=== PATIENT | male | born 1940 | race Caucasian/White ===

== ENCOUNTER → 2017-10-20 | Outpatient (CLI) | payer MEDICARE ==
[~2017-10-20] MED LIST: BISO10TA16; BISO5TAB23; DIGO125T73; FURO-45; ONDA4TAB PO; SIMV-49; TRAM-420 PO
--- NOTE | 2017-10-20 11:11 | EKG ---
FACILITY: [facility] PATIENT NAME: MALLORY SCOTT : [id number] MR: [id number] V: [id number] EXAM DATE: ORDERING PHYSICIAN: MIESHA HAYDEN TECHNOLOGIST: YANG Test Reason : afib Blood Pressure : / mmHG Vent. Rate : 111 BPM Atrial Rate : 394 BPM P-R Int : 000 ms QRS Dur : 080 ms QT Int : 346 ms P-R-T Axes : 000 122 033 degrees QTc Int : 470 ms Atrial flutter with variable conduction and with a PVC Low voltage QRS No previous ECGs available Confirmed by NELDA PETTY ([id number]) on 10/20/2017 8:50:33 PM Referred By: Confirmed By:NELDA PETTY
== END ==
LOC: LAB 10:36
PROVIDERS: ATTEND Internal Medicine
DX: I48.91 Unspecified atrial fibrillation (principal)
CPT/HCPCS: 93005

== ENCOUNTER 2018-01-26 09:52 | Emergency (ER) | payer MEDICARE ==
[~2018-01-26 09:52] MED LIST changes: -DIGO125T73; +DIGO125T73 PO; -FURO-45; +FURO-45 PO
--- NOTE | 2018-01-26 09:54 | ER Report ---
History and Physical Time Seen By MD: 09:54 HPI/ROS CHIEF COMPLAINT: Chest pain HISTORY OF PRESENT ILLNESS: Patient is a 77-year-old male with past medical history significant for atrial fibrillation currently rate controlled on digoxin which is a new medication over the past week. Also currently on Eliquis. Patient states that after going to the bathroom this morning around 7: 30 AM he was sitting down about to have breakfast and developed some right sided chest pain and pressure. No associated shortness of breath. He denies diaphoresis or nausea. Patient currently rates the pain as present but mild and has been continuous since it began at 7:30. Patient has no prior history of myocardial infarction. He denies any current tobacco use but did smoke quitting 27 years ago. He denies any abdominal pain or back pain. Denies any infectious type symptoms including fevers or chills or cough. REVIEW OF SYSTEMS: Constitutional: No fever, no chills. Eyes: No discharge. ENT: No sore throat. Cardiovascular: Right-sided chest pain, atrial fibrillation Respiratory: No cough, no shortness of breath. Gastrointestinal: No abdominal pain, no vomiting. Genitourinary: No hematuria. Musculoskeletal: No back pain. Skin: No rashes. Neurological: No headache. Allergies: Coded Allergies: cephalexin (Verified Allergy, Unknown, 01/26/18) rivaroxaban (Verified Allergy, Unknown, 01/26/18) warfarin (Verified Allergy, Unknown, 01/26/18) Home Meds Reported Medications Fluticasone/Salmeterol (ADVAIR 500-50 DISKUS) 1 Each Disk.w.dev, 1 EACH IH DAILY 01/26/18 Apixaban (ELIQUIS) 5 Mg Tablet, 5 MG PO DAILY 01/26/18 Metformin Hcl (METFORMIN HCL) 500 Mg Tablet, 1 TAB PO QDAY, TAB 01/26/18 Metoprolol Tartrate (METOPROLOL TARTRATE) 25 Mg Tablet, 50 MG PO BID, TAB 01/26/18 Digoxin (DIGOXIN) 125 Mcg Tablet, 125 MCG PO DAILY, #45 01/29/16 Furosemide (FUROSEMIDE) 20 Mg Tablet, 40 MG PO DAILY, #90 01/29/16 Discontinued Reported Medications Bisoprolol Fumarate (BISOPROLOL FUMARATE) 5 Mg Tablet, #180 01/29/16 Simvastatin (SIMVASTATIN) 20 Mg Tablet, #90 8/1/16 Bisoprolol Fumarate (BISOPROLOL FUMARATE) 10 Mg Tablet, #60 01/29/16 Discontinued Scripts Ondansetron (ZOFRAN ODT) 4 Mg Tab.rapdis, 4 MG PO Q6H for Nausea, #20 TAB.DOUGLAS Prov:VIVIANE WHITMAN DO 01/29/16 Tramadol Hcl (TRAMADOL HCL) 50 Mg Tablet, 50-100 MG PO Q4-6H for PAIN, #20 TAB Prov:VIVIANE WHITMAN DO 01/29/16 Past Medical/Surgical History Past medical history for atrial fibrillation, history of hypercholesterol, hypertension. Patient has a pacemaker. Hx Smoking: No Exposure to Second Hand Smoke?: No Hx Substance Use Disorder: Yes Hx Alcohol Use: No Constitutional Vital Sign - Last 24 Hours 01/26/18 01/26/18 09:55 09:55 Pulse 84 Resp 24 B/P (MAP) 122/73 Pulse Ox 78 O2 Delivery Room Air O2 Flow Rate 3.0 Physical Exam General/Constitutional: Patient is awake, alert, nontoxic and in no acute respiratory distress. Head: Normocephalic and atraumatic. Eyes: Conjunctival clear, Sclera are clear and anicteric. Ears:External canals are clear. Tympanic membranes are clear with normal landmarks and light reflex. Nares: No rhinorrhea or bleeding. Turbinates are pink and moist. Oropharyngeal: Mucous membranes are moist. There is no pharyngeal erythema or exudate. There are no palatal petechiae. Uvula is midline and symmetrical. Neck: Supple, no adenopathy. Cardiovascular: Heart is rate controlled but irregularly irregular. Pulmonary: Lungs are clear to auscultation bilaterally. There are no wheezes, rales, or rhonchi. Chest rise is symmetrical Abdomen: Soft, nontender, no guarding or peritoneal signs. Extremities: No gross deformities, No peripheral cyanosis. Able to move all 4 extremities. Neuro: Alert and oriented X3, Skin: No rashes, skin is warm dry and well perfused. Medical Decision Making Data Points Result Diagram: 01/26/18 1022 01/26/18 1044 Laboratory Hematology Test 01/26/18 10:22 01/26/18 10:44 01/26/18 13:25 Red Blood Count 4.56 M/uL (4.00-5.60) Mean Corpuscular Volume 99.8 fL (80.0-96.0) Mean Corpuscular Hemoglobin 34.2 pg (26.0-33.0) Mean Corpuscular Hemoglobin Concent 34.3 g/dL (32.0-36.0) Red Cell Distribution Width 16.2 % (11.5-14.5) Mean Platelet Volume 7.4 fL (7.2-11.1) Neutrophils (%) (Auto) 80.8 % (39.4-72.5) Lymphocytes (%) (Auto) 10.2 % (17.6-49.6) Monocytes (%) (Auto) 6.5 % (4.1-12.4) Eosinophils (%) (Auto) 1.6 % (0.4-6.7) Basophils (%) (Auto) 0.9 % (0.3-1.4) Nucleated RBC Relative Count (auto) 0.1 /100WBC Neutrophils # (Auto) 5.5 K/uL (2.0-7.4) Lymphocytes # (Auto) 0.7 K/uL (1.3-3.6) Monocytes # (Auto) 0.4 K/uL (0.3-1.0) Eosinophils # (Auto) 0.1 K/uL (0.0-0.5) Basophils # (Auto) 0.1 K/uL (0.0-0.1) Nucleated RBC Absolute Count (auto) 0.01 K/uL Peripheral Blood Smear No Y/N B-Type Natriuretic Peptide 195 pg/ml (0-100) Digoxin Level < 0.4 ng/ml Digoxin Last Dose Date unk Digoxin Last Dose Time unk Prothrombin Time 15.0 seconds (12.0-14.4) Prothromb Time International Ratio 1.17 Activated Partial Thromboplast Time 30 seconds (23-35) Sodium Level 137 mmol/L (137-145) Potassium Level 4.0 mmol/L (3.5-5.0) Chloride Level 103 mmol/L (98-107) Carbon Dioxide Level 23 mmol/L (22-30) Blood Urea Nitrogen 24 mg/dl (9-21) Creatinine 1.20 mg/dl (0.66-1.25) Glomerular Filtration Rate Calc 59.0 Random Glucose 124 mg/dl (75-110) Calcium Level 8.4 mg/dl (8.4-10.2) Total Bilirubin 0.8 mg/dl (0.2-1.3) Aspartate Amino Transf (AST/SGOT) 33 U/L (0-35) Alanine Aminotransferase (ALT/SGPT) 30 U/L (0-56) Alkaline Phosphatase 193 U/L (0-126) Total Protein 6.8 g/dl (6.3-8.2) Albumin 3.8 g/dl (3.5-5.0) Troponin I < 0.012 ng/ml Chemistry Test 01/26/18 10:22 01/26/18 10:44 01/26/18 13:25 White Blood Count 6.8 k/uL (4.5-11.0) Red Blood Count 4.56 M/uL (4.00-5.60) Hemoglobin 15.6 g/dL (14.0-18.0) Hematocrit 45.5 % (42.0-52.0) Mean Corpuscular Volume 99.8 fL (80.0-96.0) Mean Corpuscular Hemoglobin 34.2 pg (26.0-33.0) Mean Corpuscular Hemoglobin Concent 34.3 g/dL (32.0-36.0) Red Cell Distribution Width 16.2 % (11.5-14.5) Platelet Count 168 K/uL (150-450) Mean Platelet Volume 7.4 fL (7.2-11.1) Neutrophils (%) (Auto) 80.8 % (39.4-72.5) Lymphocytes (%) (Auto) 10.2 % (17.6-49.6) Monocytes (%) (Auto) 6.5 % (4.1-12.4) Eosinophils (%) (Auto) 1.6 % (0.4-6.7) Basophils (%) (Auto) 0.9 % (0.3-1.4) Nucleated RBC Relative Count (auto) 0.1 /100WBC Neutrophils # (Auto) 5.5 K/uL (2.0-7.4) Lymphocytes # (Auto) 0.7 K/uL (1.3-3.6) Monocytes # (Auto) 0.4 K/uL (0.3-1.0) Eosinophils # (Auto) 0.1 K/uL (0.0-0.5) Basophils # (Auto) 0.1 K/uL (0.0-0.1) Nucleated RBC Absolute Count (auto) 0.01 K/uL Peripheral Blood Smear No Y/N B-Type Natriuretic Peptide 195 pg/ml (0-100) Digoxin Level < 0.4 ng/ml Digoxin Last Dose Date unk Digoxin Last Dose Time unk Prothrombin Time 15.0 seconds (12.0-14.4) Prothromb Time International Ratio 1.17 Activated Partial Thromboplast Time 30 seconds (23-35) Glomerular Filtration Rate Calc 59.0 Calcium Level 8.4 mg/dl (8.4-10.2) Total Bilirubin 0.8 mg/dl (0.2-1.3) Aspartate Amino Transf (AST/SGOT) 33 U/L (0-35) Alanine Aminotransferase (ALT/SGPT) 30 U/L (0-56) Alkaline Phosphatase 193 U/L (0-126) Total Protein 6.8 g/dl (6.3-8.2) Albumin 3.8 g/dl (3.5-5.0) Troponin I < 0.012 ng/ml Coagulation Test 01/26/18 10:44 Prothrombin Time 15.0 seconds Prothromb Time International Ratio 1.17 Activated Partial Thromboplast Time 30 seconds Toxicology Test 01/26/18 10:22 Digoxin Level < 0.4 ng/ml Digoxin Last Dose Date unk Digoxin Last Dose Time unk EKG/Imaging EKG Interpretation EKG shows atrial fibrillation that is rate controlled with an occasional premature atrial and premature ventricular contraction. No ST segment or T-wave abnormalities. Monitor Interpretation: Atrial Fibrillation Imaging FACILITY: [facility] PATIENT NAME: Marlon Garrett : 1940 MR: [id number] V: [id number] EXAM DATE: ORDERING PHYSICIAN: ANTONIO VAN TECHNOLOGIST: Location: [facility] Patient: Marlon Garrett : 1940 Visit/Account:[id number] Date of Sevice: 01/26/2018 CHEST SINGLE AP Indication: Chest Pain Comparison: Chest x-ray 07/19/2008 Findings: Lungs: There is a soft tissue fullness in the right hilum. There is blunting of the right costophrenic angle. The left lung is clear. Mediastinum/pulmonary vasculature: There is mild cardiomegaly. Bones/soft tissues: There is an internal cardiac fibrillator/pacemaker in good position. IMPRESSION: 1. Soft tissue fullness right hilum. Differential diagnosis includes mass as well as dilated right pulmonary artery. Recommend CT chest with IV contrast to evaluate for possible mass. 2. Clear left lung. This was called by Dr. Paz to ANTONIO VAN on 01/26/2018 10:31 AM Report Dictated By: Kelvin Paz at 01/26/2018 10:31 AM Report E-Signed By: Kelvin Paz at 01/26/2018 10:45 AM WSN:[id number] FACILITY: [facility] PATIENT NAME: Marlon Garrett : 1940 MR: [id number] V: [id number] EXAM DATE: ORDERING PHYSICIAN: ANTONIO VAN TECHNOLOGIST: Location: [facility] Patient: Marlon Garrett : 1940 Visit/Account:[id number] Date of Sevice: 01/26/2018 CHEST W CONTRAST History: Right-sided mass on chest x-ray TECHNIQUE: Contiguous axial images were performed through the chest to the level of the adrenal glands following the administration of IV contrast. Coronal and sagittal reformatting was also performed. Dose Lowering Technique One of the following dose optimization techniques was utilized in the performance of this exam: Automated exposure control; adjustment of the mA and/ or kV according to the patient's size; or use of an iterative reconstruction technique. Specific details can be referenced in the facility's radiology CT exam operational policy. Contrast: 75 mL Isovue-370 COMPARISON STUDIES: Single view chest performed today. Lungs / Pleura: There is a small posterior layering right pleural effusion and adjacent airspace consolidation in the right lower lobe. There are mild reticular changes in the left lower lobe which may be chronic Mediastinum/nodes: negative. Heart and vessels: There is an ovoid hypodensity producing extrinsic mass effect on the lumen of the right main pulmonary artery extending along the posterior wall of arterial branch to the right lower lobe. There are serpiginous areas of increased density within this space-occupying process. This may represent a chronic pulmonary thrombus which is partially calcified. There is a small pericardial effusion. At least moderate calcifications are identified in the coronary arteries. There is a dual lead cardiac pacemaker moderate gastric calcifications identified in the thoracic aorta and branch vessels Musculoskeletal / Body wall: Spondylotic changes of the thoracic spine Upper abdomen: There is linear stranding in the fat adjacent to the dome of the liver IMPRESSION: Small posterior layering right pleural effusion and adjacent airspace consolidation the right lower lobe. Mild reticular changes left lower lobe which may be chronic There is an ovoid hypodensity producing extrinsic mass effect on the lumen of the right main pulmonary artery extending along the posterior wall arterial branches to the right lower lobe. Serpiginous areas of increased density within the space-occupying process may represent calcifications. This may represent a chronic pulmonary thrombus correlation with patient's history needed. Small amount of acute thrombus not totally ruled out however by history the patient is on Eloquis four A. fib Small pericardial effusion Extensive calcifications in the thoracic aorta and branch vessels including the coronary arteries Linear stranding the fat adjacent to the dome of the liver of uncertain etiology although likely chronic Report Dictated By: Saray Perkins MD at 01/26/2018 12:13 PM Report E-Signed By: Saray Perkins MD at 01/26/2018 12:37 PM WSN:[email or web address] ED Course/Re-evaluation Clinical Indication for ER IV: IV Access ED Course 01/26/2018 10:16:41 am patient with chest pain. Differential diagnosis includes is not limited to chest wall pain, reflux, pneumonia, pneumothorax, acute coronary syndrome. Plan will be cardiac workup including EKG. We will give 162 mg of aspirin along with nitroglycerin. Further will perform delta troponin over a 3 hour window. 01/26/2018 1:09:[address] scan results show a hypodensity extending and producing some mass effect on the right main pulmonary artery which may represent chronic pulmonary thrombus. I discussed the case with Dr. Whiteside who is a vascular surgeon from [facility] [place]; history exam pertinent lab data and CT scan results were reviewed. It was 's feeling that this certainly represents chronic process and not acute. He feels that the patient should continue on his Eliquis and follow up with his primary care provider. If he develops worsening chest pain or shortness of breath he should be reevaluated. At this time and I'm currently waiting on the patient's 2nd troponin level to return. I will also try to discuss the case with the the patients primary care provider who will be Dr. Swanson; He has an appointment to establish care this February. 01/26/2018 2:25:39 pm repeat troponin is negative patient is currently pain- free this time will discharge home Decision to Disposition Date: Jan 26, 2018 Decision to Disposition Time: 14:25 Depart Departure Latest Vital Signs Vital Signs Date Time Temp Pulse Resp B/P (MAP) Pulse Ox O2 Delivery O2 Flow Rate FiO2 01/26/18 09:55 3.0 01/26/18 09:55 84 24 122/73 78 Room Air Impression: Primary Impression: Chest pain Condition: Improved Disposition: HOME OR SELF-CARE Referrals: AZEEM SWANSON MD Keep your appointment as scheduled in February Patient Instructions: Chest Pain (ED) Additional Instructions: Continue all your current prescription as directed. Keep your follow-up appointment with Dr. Swanson is February If at any time your pain seems to worsen or he feels shortness of breath or develop fever and/or productive cough he should return for reevaluation in the emergency department. Problem Qualifiers Primary Impression: Chest pain Chest pain type: chest pain on breathing Qualified Codes: R07.1 - Chest pain on breathing ANTONIO VAN MD Jan 26, 2018 09:54
[2018-01-26] MEDS ORDERED: APIX5TAB PO (10:01)
[2018-01-26] MEDS ORDERED: FLUT1DIS29 IH (10:01)
[2018-01-26] MEDS ORDERED: METF-411 PO (10:01)
[2018-01-26] MEDS ORDERED: METO25TA93 PO (10:01)
[2018-01-26] MEDS ORDERED: ASPIRIN 81 MG CHEW PO ONE (10:20)
[2018-01-26] MEDS ORDERED: NITROGLYCERIN OINT 1 GM PKT TP ONE (10:20)
--- NOTE | 2018-01-26 10:26 | EKG ---
FACILITY: [facility] PATIENT NAME: MALLORY SCOTT : [id number] MR: [id number] V: [id number] EXAM DATE: ORDERING PHYSICIAN: ANTONIO VAN TECHNOLOGIST: MOISÉS Test Reason : CHEST PAIN Blood Pressure : / mmHG Vent. Rate : 078 BPM Atrial Rate : 049 BPM P-R Int : 000 ms QRS Dur : 072 ms QT Int : 388 ms P-R-T Axes : 000 055 026 degrees QTc Int : 442 ms Demand pacemaker, interpretation is based on intrinsic rhythm Atrial fibrillation with premature ventricular or aberrantly conducted complexes Low voltage QRS Abnormal ECG When compared with ECG of 20-OCT-2017 11:03, Previous ECG has undetermined rhythm, needs review Left posterior fascicular block is no longer present Confirmed by OLIVIA LOYA ([id number]) on 01/26/2018 1:24:02 PM Referred By: GALA Confirmed By:OLIVIA LOYA
[2018-01-26 10:36] LABS: PLATELET COUNT, AUTOMATED 168 K/uL (150-450)
--- NOTE | 2018-01-26 10:49 | RADIOLOGY IMAGING REPORT ---
FACILITY: [facility] [place] PATIENT NAME: Marlon Garrett : 1940 MR: [id number] V: [id number] EXAM DATE: ORDERING PHYSICIAN: ANTONIO VAN TECHNOLOGIST: Location: [facility] [place] Patient: Marlon Garrett : 1940 Visit/Account:[id number] Date of Sevice: 01/26/2018 CHEST SINGLE AP Indication: Chest Pain Comparison: Chest x-ray 07/19/2008 Findings: Lungs: There is a soft tissue fullness in the right hilum. There is blunting of the right costophreni c angle. The left lung is clear. Mediastinum/pulmonary vasculature: There is mild cardiomegaly. Bones/soft tissues: There is an internal cardiac fibrillator/pacemaker in good position. IMPRESSION: 1. Soft tissue fullness right hilum. Differential diagnosis includes mass as well as dilated right pu lmonary artery. Recommend CT chest with IV contrast to evaluate for possible mass. 2. Clear left lung. This was called by Dr. Paz to ANTONIO VAN on 01/26/2018 10:31 AM Report Dictated By: Kelvin Paz at 01/26/2018 10:31 AM Report E-Signed By: Kelvin Paz at 01/26/2018 10:45 AM WSN:[id number]
[2018-01-26 10:57] LABS: INR 1.17
[2018-01-26] MEDS ORDERED: IOPAMIDOL 76% 100 ML INFUS BTL 100 ML ONE (11:37)
--- NOTE | 2018-01-26 12:41 | RADIOLOGY IMAGING REPORT ---
FACILITY: [facility] [place] PATIENT NAME: Marlon Garrett : 1940 MR: [id number] V: [id number] EXAM DATE: ORDERING PHYSICIAN: ANTONIO VAN TECHNOLOGIST: Location: [facility] Patient: Marlon Garrett : 1940 Visit/Account:[id number] Date of Sevice: 01/26/2018 CHEST W CONTRAST History: Right-sided mass on chest x-ray TECHNIQUE: Contiguous axial images were performed through the chest to the level of the adrenal gla nds following the administration of IV contrast. Coronal and sagittal reformatting was also perform ed. Dose Lowering Technique One of the following dose optimization techniques was utilized in the performance of this exam: Autom ated exposure control; adjustment of the mA and/or kV according to the patient's size; or use of an i terative reconstruction technique. Specific details can be referenced in the facility's radiology C T exam operational policy. Contrast: 75 mL Isovue-370 COMPARISON STUDIES: Single view chest performed today. Lungs / Pleura: There is a small posterior layering right pleural effusion and adjacent airspace co nsolidation in the right lower lobe. There are mild reticular changes in the left lower lobe which m ay be chronic Mediastinum/nodes: negative. Heart and vessels: There is an ovoid hypodensity producing extrinsic mass effect on the lumen of the right main pulmonary artery extending along the posterior wall of arterial branch to the right lower lobe. There are serpiginous areas of increased density within this space-occupying process. This m ay represent a chronic pulmonary thrombus which is partially calcified. There is a small pericardial effusion. At least moderate calcifications are identified in the coronary arteries. There is a dual lead cardi ac pacemaker moderate gastric calcifications identified in the thoracic aorta and branch vessels Musculoskeletal / Body wall: Spondylotic changes of the thoracic spine Upper abdomen: There is linear stranding in the fat adjacent to the dome of the liver IMPRESSION: Small posterior layering right pleural effusion and adjacent airspace consolidation the right lower l obe. Mild reticular changes left lower lobe which may be chronic There is an ovoid hypodensity producing extrinsic mass effect on the lumen of the right main pulmonar y artery extending along the posterior wall arterial branches to the right lower lobe. Serpiginous a reas of increased density within the space-occupying process may represent calcifications. This may represent a chronic pulmonary thrombus correlation with patient's history needed. Small amount of ac trever thrombus not totally ruled out however by history the patient is on Eloquis four A. fib Small pericardial effusion Extensive calcifications in the thoracic aorta and branch vessels including the coronary arteries Linear stranding the fat adjacent to the dome of the liver of uncertain etiology although likely time piece repairer hawa Report Dictated By: Saray Perkins MD at 01/26/2018 12:13 PM Report E-Signed By: Saray Perkins MD at 01/26/2018 12:37 PM WSN:[email or web address]
[2018-01-26 14:52] VITALS: BP 110/70
[2018-01-28] MEDS ORDERED: LANS15CA54 PO (13:22)
[2018-01-28] MEDS ORDERED: MONT10TA PO (13:22)
[2018-01-28] MEDS ORDERED: METO-253 PO (13:22)
[2018-01-28] MEDS ORDERED: IBUP-56 PO (13:22)
[2018-01-28] MEDS ORDERED: FLUT1DIS28 IH (13:22)
== END 2018-01-26 14:50 | disposition home or self-care (01) ==
LOC: ER 09:56
DX: R07.1 Chest pain on breathing (principal); I48.91 Unspecified atrial fibrillation; E78.00 Pure hypercholesterolemia, unspecified; I10 Essential (primary) hypertension; Z95.0 Presence of cardiac pacemaker; Z79.84 Long term (current) use of oral hypoglycemic drugs; Z79.899 Other long term (current) drug therapy
CPT/HCPCS: 36415; 71045; 71260; 80162; 83880; 84484; 85025; 85610; 85730; 93005; 99284; A9270; Q9967; 82040; 82247; 82310; 82374; 82435; 82565; 82947; 84075; 84132; 84155; 84295; 84450; 84460; 84520

== ENCOUNTER → 2018-02-27 | Outpatient (CLI) | payer MEDICARE ==
[~2018-02-27] MED LIST changes: +APIX5TAB PO; +FLUT1DIS28 IH; +FLUT1DIS29 IH; +IBUP-56 PO; +LANS15CA54 PO; +METF-411 PO; +METO-253 PO; +METO25TA93 PO; +MONT10TA PO; +POTA-23 PO
[2018-02-27 14:49] LABS: PLATELET COUNT, AUTOMATED 227 K/uL (150-450)
== END ==
LOC: LAB 14:31
PROVIDERS: ATTEND Nurse Practitioner Primary Care
DX: R50.9 Fever, unspecified (principal)
CPT/HCPCS: 36415; 82040; 82247; 82310; 82374; 82435; 82565; 82947; 84075; 84132; 84155; 84295; 84450; 84460; 84520; 85025

== ENCOUNTER 2018-03-05 15:57 | Emergency (ER) | payer MEDICARE ==
[~2018-03-05 15:57] MED LIST changes: -METF-411 PO; +METF-450 PO
--- NOTE | 2018-03-05 16:25 | ER Report ---
History and Physical Time Seen By MD: 15:59 Hx. of Stated Complaint: PATIENT STATES THAT HE HAS A NEW RASH ON HIS LEGS BILATERAL; STARTED TODAY HAS NO PAIN HPI/ROS CHIEF COMPLAINT: rash on legs HISTORY OF PRESENT ILLNESS: Pt sent in for petechial rash on his lower legs that he says started today. pt is being seen and treated at [facility] for his toes. Today they noticed the rash and sent him to the ed. Pt denies any leg pain. PT has peteechiae as well as palpable purpura that varies from 1mm-5mm in size. Pt states that this just started today. No abd pain. no chest pain. Pt state he has has had laryngitis and low grade temps of 99 for the last 2 weeks with no uri or sorethroat symptoms. Pt is dm and is on eliquis for afib. REVIEW OF SYSTEMS: Constitutional: No fever, no chills. Eyes: No discharge. ENT: No sore throat, + laryngitis Cardiovascular: No chest pain, no palpitations. Respiratory: No cough, no shortness of breath. Gastrointestinal: No abdominal pain, no vomiting. Genitourinary: No hematuria. Musculoskeletal: No back pain. Skin: + petechiae. Neurological: No headache. Allergies: Coded Allergies: amiodarone (Unverified Allergy, Unknown, COUGH/ASTHMA, 03/05/18) cephalexin (Verified Allergy, Unknown, 03/05/18) rivaroxaban (Verified Allergy, Unknown, 03/05/18) warfarin (Verified Allergy, Unknown, 03/05/18) Home Meds Active Scripts Prednisone (PREDNISONE) 20 Mg Tablet, 20 MG PO DIRECTED, #42 TAB 60mg (3pills) daily for 7 days then 40mg (2 pills) daily for 7 days then 20mg (1 pill) daily for 7 days Prov:DORCAS VICKERS DO 03/05/18 Potassium Chloride (KLOR-CON 10) 10 Meq Tablet.er, 1 TAB PO QDAY for 30 Days, #30 TAB 0 Refills Prov:BETTY FERRERA DNP, CORPORATE SECURITY MANAGER-BC 02/27/18 Reported Medications Furosemide (FUROSEMIDE) 20 Mg Tablet, 1 TAB PO QDAY, TAB 03/05/18 Fluticasone/Salmeterol (ADVAIR 250-50 DISKUS) 1 Each Disk.w.dev, 1 EACH IH QDAY 8/1/18 Lansoprazole (PREVACID) 15 Mg Capsule.dr, 1 CAP PO QDAY 01/28/18 Ibuprofen (IBUPROFEN) 200 Mg Tablet, 1 TAB PO BID, TAB 01/28/18 Montelukast Sodium (SINGULAIR) 10 Mg Tablet, 1 TAB PO QDAY, TAB 01/28/18 Metoprolol Tartrate (METOPROLOL TARTRATE) 50 Mg Tab, 1 TAB PO BID, TAB 01/28/18 Fluticasone/Salmeterol (ADVAIR 500-50 DISKUS) 1 Each Disk.w.dev, 1 EACH IH DAILY 01/26/18 Apixaban (ELIQUIS) 5 Mg Tablet, 1 TAB PO DAILY 01/26/18 Metformin Hcl (METFORMIN HCL) 500 Mg Tablet, 1 TAB PO QDAY, TAB 01/26/18 Discontinued Reported Medications Digoxin (DIGOXIN) 125 Mcg Tablet, 1 TAB PO DAILY, #45 01/29/16 Past Medical/Surgical History pmhx: afib, asthma, DM, cellulitis Pshx: appy Reviewed Nurses Notes: Yes Old Medical Records Reviewed: Yes Hx Smoking: No Smoking Status: Former Smoker Exposure to Second Hand Smoke?: No Hx Substance Use Disorder: Yes Hx Alcohol Use: No Constitutional Vital Sign - Last 24 Hours 03/05/18 03/05/18 03/05/18 03/05/18 15:57 16:03 16:06 16:27 Temp 98.6 Pulse ??? 99 80 Resp 18 B/P (MAP) 101/62 101/62 (75) Pulse Ox 91 84 O2 Delivery Room Air 03/05/18 03/05/18 03/05/18 03/05/18 16:30 16:57 17:00 17:27 Pulse 86 125 B/P (MAP) 92/75 (81) 101/57 (72) Pulse Ox 85 88 03/05/18 03/05/18 03/05/18 03/05/18 17:30 17:35 18:00 18:05 Pulse 80 76 B/P (MAP) 113/73 (86) 107/78 (88) Pulse Ox 91 89 03/05/18 18:10 Pulse 82 Pulse Ox 90 Physical Exam General Appearance: The patient is alert, has no immediate need for airway protection and no signs of toxicity. Eyes: Pupils equal and round no pallor or injection, EOMI ENT: no pharyngeal erythema or exudates, Mucous membranes are moist Respiratory: There are no retractions, lungs are clear to auscultation. Cardiovascular: Regular rate and rhythm. pulses are equal and symmetrical Gastrointestinal: Abdomen is soft and non tender, no masses, bowel sounds normal, no guarding, no rigidity or rebound Neurological: Cranial nerves II-XII grossly intact, no sensory or motor loss Skin: Warm and dry, + petechiae and palpable purpura on lower extremities b/l 1mm-5mm in size; no edema Musculoskeletal: Neck is supple non tender, no vertebral tenderness Extremities are nontender, non swollen and have full range of motion. DIFFERENTIAL DIAGNOSIS: After history and physical exam differential diagnosis was considered for small vessel vasulitis, coagulopathy, viral syndrome, laryngitis Medical Decision Making Data Points Result Diagram: 03/05/18 1640 03/05/18 1640 Laboratory Hematology Test 03/05/18 16:40 03/05/18 17:35 Red Blood Count 4.05 M/uL (4.00-5.60) Mean Corpuscular Volume 96.2 fL (80.0-96.0) Mean Corpuscular Hemoglobin 33.0 pg (26.0-33.0) Mean Corpuscular Hemoglobin Concent 34.4 g/dL (32.0-36.0) Red Cell Distribution Width 15.2 % (11.5-14.5) Mean Platelet Volume 8.1 fL (7.2-11.1) Neutrophils (%) (Auto) 70.6 % (39.4-72.5) Lymphocytes (%) (Auto) 16.1 % (17.6-49.6) Monocytes (%) (Auto) 9.9 % (4.1-12.4) Eosinophils (%) (Auto) 1.1 % (0.4-6.7) Basophils (%) (Auto) 2.3 % (0.3-1.4) Nucleated RBC Relative Count (auto) 0.1 /100WBC Neutrophils # (Auto) 3.8 K/uL (2.0-7.4) Lymphocytes # (Auto) 0.9 K/uL (1.3-3.6) Monocytes # (Auto) 0.5 K/uL (0.3-1.0) Eosinophils # (Auto) 0.1 K/uL (0.0-0.5) Basophils # (Auto) 0.1 K/uL (0.0-0.1) Nucleated RBC Absolute Count (auto) 0.00 K/uL Prothrombin Time 21.8 seconds (12.0-14.4) Prothromb Time International Ratio 1.88 Activated Partial Thromboplast Time 37 seconds (23-35) Sodium Level 138 mmol/L (137-145) Potassium Level 3.5 mmol/L (3.5-5.0) Chloride Level 98 mmol/L (98-107) Carbon Dioxide Level 27 mmol/L (22-30) Blood Urea Nitrogen 33 mg/dl (9-21) Creatinine 1.60 mg/dl (0.66-1.25) Glomerular Filtration Rate Calc 42.3 Random Glucose 110 mg/dl (75-110) Calcium Level 7.7 mg/dl (8.4-10.2) Total Bilirubin 0.7 mg/dl (0.2-1.3) Aspartate Amino Transf (AST/SGOT) 22 U/L (0-35) Alanine Aminotransferase (ALT/SGPT) 22 U/L (0-56) Alkaline Phosphatase 168 U/L (0-126) Total Protein 6.7 g/dl (6.3-8.2) Albumin 3.7 g/dl (3.5-5.0) Urine Color Yellow Urine Clarity Clear Urine pH 5.0 pH (4.8-9.5) Urine Specific [place] 1.016 Urine Protein Negative mg/dL (NEGATIVE) Urine Glucose (UA) Negative mg/dL (NEGATIVE) Urine Ketones Negative mg/dL (NEGATIVE) Urine Blood Negative (NEGATIVE) Urine Nitrite Negative (NEGATIVE) Urine Bilirubin Negative (NEGATIVE) Urine Urobilinogen Negative mg/dL (0.2-1.9) Urine Leukocyte Esterase Negative (NEGATIVE) Urine RBC 1 /HPF (0-2/HPF) Urine WBC 1 /HPF (0-5/HPF) Urine Squamous Epithelial Cells None /LPF (</=FEW) Urine Bacteria Negative /HPF (NONE-FEW) Urine Hyaline Casts Many /LPF (NONE-FEW) Urine Mucus Few /HPF (NONE-FEW) Chemistry Test 03/05/18 16:40 03/05/18 17:35 White Blood Count 5.4 k/uL (4.5-11.0) Red Blood Count 4.05 M/uL (4.00-5.60) Hemoglobin 13.4 g/dL (14.0-18.0) Hematocrit 38.9 % (42.0-52.0) Mean Corpuscular Volume 96.2 fL (80.0-96.0) Mean Corpuscular Hemoglobin 33.0 pg (26.0-33.0) Mean Corpuscular Hemoglobin Concent 34.4 g/dL (32.0-36.0) Red Cell Distribution Width 15.2 % (11.5-14.5) Platelet Count 227 K/uL (150-450) Mean Platelet Volume 8.1 fL (7.2-11.1) Neutrophils (%) (Auto) 70.6 % (39.4-72.5) Lymphocytes (%) (Auto) 16.1 % (17.6-49.6) Monocytes (%) (Auto) 9.9 % (4.1-12.4) Eosinophils (%) (Auto) 1.1 % (0.4-6.7) Basophils (%) (Auto) 2.3 % (0.3-1.4) Nucleated RBC Relative Count (auto) 0.1 /100WBC Neutrophils # (Auto) 3.8 K/uL (2.0-7.4) Lymphocytes # (Auto) 0.9 K/uL (1.3-3.6) Monocytes # (Auto) 0.5 K/uL (0.3-1.0) Eosinophils # (Auto) 0.1 K/uL (0.0-0.5) Basophils # (Auto) 0.1 K/uL (0.0-0.1) Nucleated RBC Absolute Count (auto) 0.00 K/uL Prothrombin Time 21.8 seconds (12.0-14.4) Prothromb Time International Ratio 1.88 Activated Partial Thromboplast Time 37 seconds (23-35) Glomerular Filtration Rate Calc 42.3 Calcium Level 7.7 mg/dl (8.4-10.2) Total Bilirubin 0.7 mg/dl (0.2-1.3) Aspartate Amino Transf (AST/SGOT) 22 U/L (0-35) Alanine Aminotransferase (ALT/SGPT) 22 U/L (0-56) Alkaline Phosphatase 168 U/L (0-126) Total Protein 6.7 g/dl (6.3-8.2) Albumin 3.7 g/dl (3.5-5.0) Urine Color Yellow Urine Clarity Clear Urine pH 5.0 pH (4.8-9.5) Urine Specific [place] 1.016 Urine Protein Negative mg/dL (NEGATIVE) Urine Glucose (UA) Negative mg/dL (NEGATIVE) Urine Ketones Negative mg/dL (NEGATIVE) Urine Blood Negative (NEGATIVE) Urine Nitrite Negative (NEGATIVE) Urine Bilirubin Negative (NEGATIVE) Urine Urobilinogen Negative mg/dL (0.2-1.9) Urine Leukocyte Esterase Negative (NEGATIVE) Urine RBC 1 /HPF (0-2/HPF) Urine WBC 1 /HPF (0-5/HPF) Urine Squamous Epithelial Cells None /LPF (</=FEW) Urine Bacteria Negative /HPF (NONE-FEW) Urine Hyaline Casts Many /LPF (NONE-FEW) Urine Mucus Few /HPF (NONE-FEW) Coagulation Test 03/05/18 16:40 Prothrombin Time 21.8 seconds Prothromb Time International Ratio 1.88 Activated Partial Thromboplast Time 37 seconds Urinalysis Test 03/05/18 17:35 Urine Color Yellow Urine Clarity Clear Urine pH 5.0 pH (4.8-9.5) Urine Specific [place] 1.016 Urine Protein Negative mg/dL (NEGATIVE) Urine Glucose (UA) Negative mg/dL (NEGATIVE) Urine Ketones Negative mg/dL (NEGATIVE) Urine Blood Negative (NEGATIVE) Urine Nitrite Negative (NEGATIVE) Urine Bilirubin Negative (NEGATIVE) Urine Urobilinogen Negative mg/dL (0.2-1.9) Urine Leukocyte Esterase Negative (NEGATIVE) Urine RBC 1 /HPF (0-2/HPF) Urine WBC 1 /HPF (0-5/HPF) Urine Squamous Epithelial Cells None /LPF (</=FEW) Urine Bacteria Negative /HPF (NONE-FEW) Urine Hyaline Casts Many /LPF (NONE-FEW) Urine Mucus Few /HPF (NONE-FEW) ED Course/Re-evaluation Clinical Indication for ER IV: Hydration, IV Access ED Course Pts labs show mild dehydration. will start fluids. Pt will need to be started on steriods and have close follow up. he is aware that steroids will cause an increase in his blood sugars. No blood in urine. 03/05/2018 6:26:56 pm Pt has an appt with his shoe repair cobbler in [place] tomorrow. Made copies of pts labs to take. Pt has an appt with Dr. Reyes on mar 19. Pt is told he will need to follow up with his Betty ferrera next week until he is able to get into [facility]. Pt states he feels fine currently and is asymptomatic. Told him if he develops any symptoms he will need to return and possibly be admitte.d Decision to Disposition Date: Mar 05, 2018 Decision to Disposition Time: 17:45 Depart Departure Latest Vital Signs Vital Signs Date Time Temp Pulse Resp B/P (MAP) Pulse Ox O2 Delivery O2 Flow Rate FiO2 03/05/18 18:10 82 90 03/05/18 18:00 107/78 (88) 03/05/18 16:03 98.6 18 Room Air Impression: Primary Impression: Vasculitis of skin Additional Impression: Petechial rash Condition: Condition Unchanged Disposition: HOME OR SELF-CARE Referrals: BETTY FERRERA DNP, CORPORATE SECURITY MANAGER-BC (PCP) 5 Days New Scripts Prednisone (PREDNISONE) 20 Mg Tablet 20 MG PO DIRECTED, #42 TAB 60mg (3pills) daily for 7 days then 40mg (2 pills) daily for 7 days then 20mg (1 pill) daily for 7 days Prov: DORCAS VICKERS DO 03/05/18 Patient Instructions: Purpura (ED) Additional Instructions: Your symptoms today are suggestive of vasculitis which is most likely being caused by an inflammation of your blood vessels causing them to leak. We are going to start you on prednisone to help decrease the inflammation: prednisone 60mg (3pills) daily for 7 days then 40mg (2 pills) daily for 7 days then 20mg (1 pill) daily for 7 days Try to rest your legs and keep them elevated. You should start to see an improvement in your rash in the next 7 days but you will need to continue your steriods until finished. Follow up with your doctor in next 5 days. You should have your blood work rechecked by your doctor. If symptoms worsen prior to seeing your doctor then please return. Problem Qualifiers DORCAS VICKERS DO Mar 05, 2018 16:25
[2018-03-05 16:51] LABS: PLATELET COUNT, AUTOMATED 227 K/uL (150-450)
[2018-03-05 17:00] LABS: INR 1.88
[2018-03-05] MEDS ORDERED: methylPREDNIS SUCC 125 MG/2ML IVP ONE (17:15)
[2018-03-05] MEDS ORDERED: NS(*) 0.9% 500 ML BAG 500 ML IV ONE (17:15)
[2018-03-05] MEDS ORDERED: FURO-45 PO (17:18)
[2018-03-05 18:00] VITALS: BP 107/78
[2018-03-05] MEDS ORDERED: PRED20TA6 PO (18:07)
== END 2018-03-05 18:23 | disposition home or self-care (01) ==
LOC: ER 16:16
DX: L95.9 Vasculitis limited to the skin, unspecified (principal); E11.9 Type 2 diabetes mellitus without complications; I48.2 Chronic atrial fibrillation
CPT/HCPCS: 36415; 81001; 83036; 85025; 85610; 85730; 87040; 99283; J2930; J7040; 82040; 82247; 82310; 82374; 82435; 82565; 82947; 84075; 84132; 84155; 84295; 84450; 84460; 84520

== ENCOUNTER → 2018-03-31 | Outpatient (CLI) | payer MEDICARE ==
[~2018-03-31] MED LIST changes: +OXYGENHOME INH; +PRED20TA6 PO
== END ==
LOC: LAB 13:56
PROVIDERS: ATTEND Otolaryngology
DX: R49.0 Dysphonia (principal); J38.00 Paralysis of vocal cords and larynx, unspecified
CPT/HCPCS: 36415; 82565

== ENCOUNTER → 2018-04-07 | Outpatient (CLI) | payer MEDICARE ==
[2018-04-07 09:46] LABS: INR 1.33
== END ==
LOC: LAB 09:10
PROVIDERS: ATTEND Internal Medicine
DX: Z01.810 Encounter for preprocedural cardiovascular examination (principal); I48.2 Chronic atrial fibrillation
CPT/HCPCS: 36415; 81001; 82310; 82374; 82435; 82565; 82947; 84132; 84295; 84520; 85027; 85610

== ENCOUNTER → 2018-04-10 | Outpatient (CLI) | payer MEDICARE ==
[~2018-04-10] MED LIST changes: +IOPAMIDOL 76% 75 ML INFUS BTL 75 ML ONE
--- NOTE | 2018-04-10 14:20 | RADIOLOGY IMAGING REPORT ---
FACILITY: [facility] PATIENT NAME: Marlon Garrett : 1940 MR: [id number] V: [id number] EXAM DATE: ORDERING PHYSICIAN: NEAL GARRETT TECHNOLOGIST: Location: [facility] Patient: Marlon Garrett : 1940 Visit/Account:[id number] Date of Sevice: 04/10/2018 CT neck with contrast Comparison: None Additional pertinent history: Left vocal cord paralysis TECHNIQUE: Multiple axial images were obtained from the mid portion of the brain through the superio r mediastinum with IV contrast. Coronal and sagittal reformatted images were obtained off the axial source data. One of the following dose optimization techniques was utilized in the performance of t his exam: Automated exposure control; adjustment of the mA and/or kV according to the patient's size; or use of an iterative reconstruction technique. Specific details can be referenced in the [facility]'s radiology CT exam operational policy. CONTRAST: 75 mL of Isovue-370 FINDINGS: Visualized portions of the brain parenchyma:Negative Parotid glands/submandibular glands/thyroid: Negative Orbits: Negative Paranasal sinuses: Negative Parapharyngeal spaces: Negative Nasopharynx/oropharynx/hypopharynx: Negative Tonsillar pillars: Negative Oral tongue/tongue base: Negative True and false cords: Lateral deviation of the left true vocal cord compatible with underlying vocal cord paralysis. Lymph node assessment:Negative Surrounding soft tissues: Negative Vasculature: Proximal cervical internal artery calcifications as well as calcifications involving th e thoracic aortic arch. Lung apices: Negative Osseous structures: Spondylitic change involving the cervical spine. No acute appearing bony abnormal ities. IMPRESSION: 1. Findings of paralysis of the left true vocal cord. 2. No underlying etiology noted on today's exam. Report Dictated By: Scot Francois MD at 04/10/2018 2:11 PM Report E-Signed By: Scot Francois MD at 04/10/2018 2:15 PM WSN:[id number]
== END ==
LOC: CT 04:18
PROVIDERS: ATTEND Otolaryngology
DX: J38.01 Paralysis of vocal cords and larynx, unilateral (principal); I25.10 Atherosclerotic heart disease of native coronary artery without angina pectoris; I70.0 Atherosclerosis of aorta; M47.892 Other spondylosis, cervical region
CPT/HCPCS: 70491; Q9967

== ENCOUNTER 2018-05-15 04:03 | Day surgery (SDC) | payer MEDICARE ==
[2018-05-15] VITALS (7 sets, daily range): BP systolic 114–147; BP diastolic 65–87
[~2018-05-15] VITALS: Ht 182.9 cm; Wt 135.6 kg
[~2018-05-15 04:03] MED LIST changes: -IOPAMIDOL 76% 75 ML INFUS BTL 75 ML ONE
[2018-05-15] MEDS ORDERED: MIDAZOLAM 2 MG/2 ML VIAL IVP PRN (05:40)
[2018-05-15] MEDS ORDERED: LIDOCAINE/SOD BICARB 8.4% SYR ID ONE (05:40)
[2018-05-15] MEDS ORDERED: NORMOSOL R SOLN(*) 1000 ML BAG 1,000 ML IV PRN (05:40)
[2018-05-15] MEDS ORDERED: FAMOTIDINE 20 MG TAB PO ONE (05:40)
[2018-05-15] MEDS ORDERED: PROPOFOL EMUL(*) 10MG/ML 20 ML 20 ML ONE ×2 (08:16→09:57)
[2018-05-15] MEDS ORDERED: LIDOCAINE MPF 1% 5 ML VIAL ONE ×2 (08:16→09:53)
[2018-05-15] MEDS ORDERED: SUCCINYLCHOL CHL 200MG/10ML VL ONE (08:16)
[2018-05-15] MEDS ORDERED: ONDANSETRON 4 MG/2 ML VIAL ONE ×2 (08:16→09:53)
[2018-05-15] MEDS ORDERED: DEXAMETHASONE SOD 4 MG/ML VIAL ONE ×3 (08:16→10:46)
[2018-05-15] MEDS ORDERED: METOCLOPRAMIDE 10 MG/2 ML SDV ONE (09:53)
[2018-05-15] MEDS ORDERED: ROCURONIUM BROM 10 MG/ML 10 ML ONE (09:57)
[2018-05-15] MEDS ORDERED: fentaNYL CITR 100 MCG/2 ML AMP ONE (10:03)
[2018-05-15] MEDS ORDERED: SUGAMMADEX SOD 200 MG/2 ML SDV ONE (10:57)
--- NOTE | 2018-05-15 11:02 | EKG ---
FACILITY: [facility] [place] PATIENT NAME: MALLORY SCOTT : [id number] MR: [id number] V: [id number] EXAM DATE: ORDERING PHYSICIAN: OLIVIA KEY TECHNOLOGIST: ISELA Test Reason : PREOP-VOCAL FOLD Blood Pressure : / mmHG Vent. Rate : 071 BPM Atrial Rate : 070 BPM P-R Int : 000 ms QRS Dur : 154 ms QT Int : 464 ms P-R-T Axes : 000 063 021 degrees QTc Int : 504 ms Atrial flutter 4:1 conduction Nonspecific intraventricular block Abnormal ECG When compared with ECG of 26-JAN-2018 10:16, Wide QRS rhythm has replaced Atrial fibrillation Confirmed by Jamar Casey ([id number]) on 05/15/2018 4:36:59 PM Referred By: YESI Confirmed By:Jamar Barnes
--- NOTE | 2018-05-15 12:00 | OPERATIVE REPORT 1 ---
EVENT DATE: May 15, 2018 SURGEON: Kyle Garrett Jr., MD ANESTHESIOLOGIST: Fer Mckenzie MD ANESTHESIA: General endotracheal. PROCEDURE PERFORMED Left vocal fold medialization with Prolaryn Plus. PREOPERATIVE DIAGNOSES 1. Dysphonia. 2. Left vocal fold paresis. POSTOPERATIVE DIAGNOSES 1. Dysphonia. 2. Left vocal fold paresis. INDICATIONS Please refer to the preoperative note. DESCRIPTION OF PROCEDURE The patient was positively identified in the preoperative area. He was accompanied there by his . Risks and benefits were explained including, but not limited to, injury to lip, dentition, oral cavity, pharynx, larynx, persistent dysphonia, airway compromise and those associated with anesthesia. He acknowledged understanding of those risks. He was then brought back to the operating room, laid supine on the operating table and anesthesia was administered. Once asleep, the patient was positioned, prepped and draped in the usual sterile fashion. A mouth guard was placed over the patient's maxillary dentition. Direct laryngoscope was carefully introduced in the patient's oral cavity and advanced to the level of the larynx. I injected approximately 0.8 cc's of Prolaryn Plus just lateral to the vocal fold process on the left. The patient was then returned to Anesthesia for emergence. ESTIMATED BLOOD LOSS Negligible. COMPLICATIONS No complications. MTDD
== END 2018-05-15 11:50 | disposition home or self-care (01) ==
LOC: OR 04:03
PROVIDERS: ATTEND Otolaryngology
DX: J38.01 Paralysis of vocal cords and larynx, unilateral (principal); R49.0 Dysphonia; I48.2 Chronic atrial fibrillation; K21.9 Gastro-esophageal reflux disease without esophagitis; E78.00 Pure hypercholesterolemia, unspecified; I10 Essential (primary) hypertension; J45.909 Unspecified asthma, uncomplicated; G47.33 Obstructive sleep apnea (adult) (pediatric); Z86.711 Personal history of pulmonary embolism; G47.30 Sleep apnea, unspecified; E11.9 Type 2 diabetes mellitus without complications; Z95.0 Presence of cardiac pacemaker
CPT/HCPCS: 31570; 36416; 82948; 93005; A9270; J0330; J1100; J2001; J2405; J2704; J3010; Q2026; J2765

== ENCOUNTER → 2018-05-20 | Outpatient (CLI) | payer MEDICARE | LOC: LAB 12:39 | PROVIDERS: ATTEND Internal Medicine | DX: R91.8 Other nonspecific abnormal finding of lung field (principal) | CPT/HCPCS: 36415; 82040; 82247; 82310; 82374; 82435; 82565; 82947; 84075; 84132; 84155; 84295; 84450; 84460; 84520 ==

== ENCOUNTER → 2018-05-27 | Outpatient (CLI) | payer MEDICARE ==
[~2018-05-27] MED LIST changes: +ALB18R INH
== END ==
LOC: LAB 10:20
PROVIDERS: ATTEND Family Medicine
DX: Z12.5 Encounter for screening for malignant neoplasm of prostate (principal); N18.9 Chronic kidney disease, unspecified
CPT/HCPCS: 36415; G0103; 82310; 82374; 82435; 82565; 82947; 84132; 84153; 84295; 84520

== ENCOUNTER → 2018-05-30 | Outpatient (CLI) | payer MEDICARE ==
[~2018-05-30] MED LIST changes: +BLOO1STR38 MC
== END ==
LOC: LAB 10:20
PROVIDERS: ATTEND Internal Medicine
DX: R91.8 Other nonspecific abnormal finding of lung field (principal)
CPT/HCPCS: 36415; 82040; 82247; 82310; 82374; 82435; 82565; 82947; 84075; 84132; 84155; 84295; 84450; 84460; 84520

== ENCOUNTER 2018-07-15 14:24 | Outpatient (RCR) | payer MEDICARE ==
--- NOTE | 2018-07-15 16:02 | SPEECH INITIAL EVALUATION ---
VOCAL PRODUCTION EVALUATION REPORT NAME: Marlon Garrett EVALUATION DATE: 07/15/2018 DATE OF : 44 DIAGNOSIS: Dysphonia EXAMINER: Hazel Alarcon MS, [facility] [employer] INSPECTOR PHYSICIAN: Kyle Garrett Jr., MD BACKGROUND The patient is a 77 year old male seen by speech therapy for a voice evaluation. 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 The pt reports experiencing an abrupt, total loss of voice for 10 weeks. He underwent L vocal fold medialization injection in April of 2018. Following medialization, he reports that his voice has improved significantly. Vocal quality continues to fluctuate with intermittent hoarseness throughout the day. The pt also reports choking on thin liquids at least 2x/day prior to vocal fold injection. Immediately prior to todays evaluation, the pt was apparently coughing aggressively on his saliva in the lobby while eating a hard candy. He states that his swallowing deficits have resolved since vocal fold medialization, while later endorsing continuance of choking episodes approximately every other day. The pt was screened with sips of thin liquids. No overt signs of aspiration were observed; however, further, objective analysis appears warranted. A modified barium swallow study is recommended prior to establishment of swallowing therapy. ASSESSMENT Daily water intake: 2-3 glasses Throat clearing/Coughing: frequently noted throughout evaluation Caffeine: none Smoking hx: former smoker, quit 27 years ago Reflux hx: GERD, managed via meds COPD hx: pt denies, although it is indicated in medical record. Pt wears oxygen at night only, and states his O2 levels are typically between 86-88 per pulse oximeter. PCP aware. Breath Support: abdominal, diaphragmatic, WFL Maximum Phonation Time: 12 sec (~20seconds considered WFL) s/z Ratio: 2.8 (1.4 is normal, >1.4 is indicative of laryngeal insufficiency) CAPE-V Pitch: mildly deviant with intermittent pitch breaks. Pitch breaks more often observed at higher frequencies. Breathiness: normal/absent Hoarseness: mild to moderate hoarseness over time after prolonged periods of phonation Intensity: normal loudness Resonance: normal Overall Severity: mildly deviant vocal quality characterized by intermittent hoarseness and pitch breaks with decreased endurance for lengthy utterances Voice Handicap Index (VHI) Perceptual Measurement: During the evaluation, the pt completed a Vocal Handicap Index (VHI) to analyze perceived vocal changes and the functional impact of these changes on the pts life. The VHI is composed of three categories; physical, functional, and emotional subtests. An overall score of 0-30 reflects a minimal handicap, 31-60 reflects moderate handicap, and 60-120 is indicative of severe impairment. Total score= 5; minimal perceived handicap. Based on the VHI, pt demonstrates minimal vocal impairments exclusive to physical deficits. The pt reports experiencing variation in the sound of his voice throughout the day, and states that his voice sounds croaky and dry. The pt also reports that prior to medialization, his perception was significantly worse. SUMMARY Pt presents with mild vocal deviation related to known L vocal fold paresis. Suspect maladaptive vocal behaviors further contribute to perceived hoarseness, including frequent throat clearing, excessive talking throughout the day, and low water intake. Vocal deficits are characterized by intermittent hoarseness and pitch breaks. Based on evaluation results, voice therapy is warranted to provide patient instruction in behavioral compensations and vocal exercises to minimize functional impact of changes in voice production. An individualized program and home program will be established and trained. Pt was provided education re: vocal hygiene and goals for interventions. Additional education was provided re: pharyngeal/laryngeal anatomy and physiology as it relates to swallowing. Discussed implications of vocal fold paresis on reduced airway protection. Additionally discussed recommendations to complete a modified barium swallow study 2/2 significant history of coughing/choking episodes. Prognosis: Good. Strong motivation to participate. Recommendations ST 2x/wk, 3 wks, then reduced to 1x/wk, 4 wks MBSS POC Short Term Goals 1. Pt will independently complete vocal exercise program to minimize L-sided vocal fold paresis with reduction in vocal hoarseness and improved overall vocal quality / functional communication. 2. Pt will demonstrate max phonation time wnl (18 seconds) with good vocal quality including reduced hoarseness and elimination of pitch breaks as judged by perceptual measures via patient and speech language pathologist. 3. Pt will independently demonstrate comprehension of education provided regarding vocal hygiene to minimize vocal abuse/misuse and improve vocal quality in conversation. Water System Operator Goal Pt will demonstrate functional vocal production and overall quality of voice during conversation at home, and in the community. Thank you for this referral. Please call [phone] Hazel Alarcon M.S., [facility] [employer] INSPECTOR Physician Signature Date MTDD
--- NOTE | 2018-07-29 08:16 | SLP DISCHARGE NOTE ---
SPEECH THERAPY DISCHARGE REPORT NAME: Marlon Garrett EVALUATION DATE: 07/15/2018 REPORT DATE: 07/29/2018 LAST DATE OF TX: did not attend scheduled tx sessions since evaluation on 07/15/2018 DATE OF : 1940 EXAMINER: Hazel Alarcon MS, [facility] MACHINE OPERATOR PHYSICIAN: Kyle Garrett Jr., MD DIAGNOSIS: Dysphonia Mr. Marlon Garrett was evaluated by ST services at [facility] on 07/15/18. He did not attend any scheduled tx visits following his initial assessment. Mr. 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 He also reported choking on thin liquids at least 2x/day prior to receiving vocal fold injection. Evaluation procedures revealed mild vocal deviation related L vocal fold paresis. It was suspected that maladaptive vocal behaviors further contributed to perceived hoarseness, including frequent throat clearing, excessive talking throughout the day, and low water intake. Vocal deficits were characterized by intermittent hoarseness and pitch breaks. A modified barium swallow study was also recommended at the time of assessment to assist in establishing targeted treatment interventions for reported swallowing deficits. The following goals were established on 07/15/18: Short Term Goals 1. Pt will independently complete vocal exercise program to minimize L-sided vocal fold paresis with reduction in vocal hoarseness and improved overall vocal quality / functional communication. NOT MET. 2. Pt will demonstrate max phonation time wnl (18 seconds) with good vocal quality including reduced hoarseness and elimination of pitch breaks as judged by perceptual measures via patient and speech language pathologist. NOT MET. 3. Pt will independently demonstrate comprehension of education provided regarding vocal hygiene to minimize vocal abuse/misuse and improve vocal quality in conversation. NOT MET. De Ionizer Operator Goal Pt will demonstrate functional vocal production and overall quality of voice during conversation at home, and in the community. NOT MET. DC SUMMARY AND RECOMMENDATIONS Mr. Garrett did not attend any scheduled treatment appointments. He elected to discontinue interventions. Unable to progress towards POC. ST will be discharged at this time. Continue to recommend completion of a modified barium swallow study if swallowing deficits persist. Thank you for this referral. Please call [phone] Hazel Alarcon M.S., [facility] [employer] MACHINE OPERATOR Physician Signature Date [*] MTDD
== END 2018-07-15 18:00 | disposition home or self-care (01) ==
LOC: ST 14:24
PROVIDERS: ATTEND Otolaryngology
DX: R49.0 Dysphonia (principal); J38.01 Paralysis of vocal cords and larynx, unilateral
CPT/HCPCS: 92524

== ENCOUNTER → 2019-01-04 | Outpatient (REF) | payer MEDICARE ==
[~2019-01-04] MED LIST changes: +DICL100G39 TOP; +LANS30CA63 PO
== END ==
LOC: ZZSTITCHES 18:03
PROVIDERS: ATTEND Physician Assistant
DX: L03.031 Cellulitis of right toe (principal)
CPT/HCPCS: 87070

== ENCOUNTER → 2019-02-10 | Outpatient (CLI) | payer MEDICARE ==
[2019-02-10 17:07] LABS: PLATELET COUNT, AUTOMATED 148 K/uL (150-450)
--- NOTE | 2019-02-11 09:10 | EKG ---
[place]AC[place] [facility] [place] NAME: MALLORY SCOTT : [id number] MR: [id number]: [id number] EXAM DATE: ORDERING PHYSICIAN: AZEEM SWANSON TECHNOLOGIST: MICHAEL Zayas Reason : PRE OP Blood Pressure : / mmHG Vent. Rate : 070 BPM Atrial Rate : 068 BPM P-R Int : 000 ms QRS Dur : 158 ms QT Int : 434 ms P-R-T Axes : 000 068 260 degrees QTc Int : 468 ms Ventricular-paced rhythm Abnormal ECG No previous ECGs available Confirmed by HEATHER SIDDIQI ([id number]) on 02/15/2019 4:37:30 PM Referred By: KIKI Confirmed By:HEATHER SIDDIQI
== END ==
LOC: LAB 16:43
PROVIDERS: ATTEND Family Medicine
DX: Z01.818 Encounter for other preprocedural examination (principal); E11.9 Type 2 diabetes mellitus without complications; I48.91 Unspecified atrial fibrillation
CPT/HCPCS: 36415; 82040; 82247; 82310; 82374; 82435; 82565; 82947; 83036; 84075; 84132; 84155; 84295; 84450; 84460; 84520; 85025